=== PATIENT | female | born 1965 | race Native Hawaiian/Other Pacific Islander ===

== ENCOUNTER 2016-06-08 08:52 | Outpatient (CLI) | payer BC ==
[2016-06-08 09:20] LABS: PLATELET COUNT 281 K/uL (152-353)
[2016-06-08 10:22] LABS: POTASSIUM 2.9 mmol/L (3.6-5.2); SODIUM 136 mmol/L (136-145)
== END 2016-06-08 19:01 | disposition home or self-care (01) ==
LOC: LABW 08:52
PROVIDERS: Obstetrics & Gynecology
DX: N83.292 Other ovarian cyst, left side (principal); Z00.01 Encounter for general adult medical examination with abnormal findings; Z13.220 Encounter for screening for lipoid disorders; E78.00 Pure hypercholesterolemia, unspecified
CPT/HCPCS: 36415; 80053; 80061; 82670; 83001; 83002; 83036; 84402; 84403; 84436; 84439; 84443; 84480; 85027; 86304